=== PATIENT | female | born 1985 | race Hispanic/Latino ===

== ENCOUNTER → 2024-10-30 10:19 | Outpatient (REF) | payer OTHER, SELFPAY ==
[2024-10-30 11:59] LABS: Hematocrit 42.3 % (37.0-47.0); Hemoglobin 14.9 g/dL (12.0-16.0); Mean Corp Hgb Conc. 35.2 g/dL (33.0-37.0); Mean Corpuscular Hgb 30.2 pg (27.0-31.0); Mean Corpuscular Volume 85.8 fL (81.0-99.0); Mean Platelet Volume 11.7 fL (7.4-10.4); Platelet Count 210 10^3/uL (130-400); Red Blood Cell Count 4.93 10^6/uL (4.20-5.40); Red Cell Dist. Width 12.6 % (11.5-14.5); White Blood Cell Count 6.7 10^3/uL (4.8-10.8)
[2024-10-30 12:33] LABS: ALT (SGPT) 19 U/L (0-35); AST (SGOT) 20 U/L (14-36); Albumin 3.9 g/dl (3.5-5.0); Alkaline Phosphatase 65 U/L (38-126); Blood Urea Nitrogen 13 mg/dl (7-17); Calcium 8.9 mg/dl (8.4-10.2); Carbon Dioxide 27 mmol/L (22-30); Chloride 107 mmol/L (98-107); Glucose 82 mg/dl (70-99); HDL Cholesterol 46 mg/dl; LDL Cholesterol, Calculated 119 mg/dl; Sodium 140 mmol/L (135-145); Total Bilirubin 0.9 mg/dl (0.2-1.3); Total Cholesterol 184 mg/dl (50-199); Total Protein 6.7 g/dl (6.3-8.2); Triglyceride 95 mg/dl (10-149); Very Low Density Lipoprotein 19 mg/dl (0-30); eGFR > 60.00
[2024-10-30 13:06] LABS: TSH Reflex To Free T4 4.72 uIU/ml (0.47-4.68)
[2024-10-30 13:26] LABS: Glycohemoglobin (HgbA1c) 4.8 % (4.0-5.6)
[2024-10-30 13:34] LABS: Free T4 0.89 ng/dl (0.78-2.19)
== END ==
LOC: CLINIC 10:19
PROVIDERS: ATTENDING PHYSICIAN Nurse Practitioner Adult Health
DX: R73.9 Hyperglycemia, unspecified (principal); Z00.00 Encounter for general adult medical examination without abnormal findings
CPT/HCPCS: 36415; 80053; 80061; 83036; 84439; 84443; 85027

== ENCOUNTER → 2025-02-26 16:21 | Outpatient (REF) | payer OTHER, SELFPAY ==
[2025-02-26 17:32] LABS: TSH 2.18 uIU/ml (0.47-4.68)
== END ==
LOC: CLINIC 16:21
PROVIDERS: ATTENDING PHYSICIAN Nurse Practitioner Adult Health
DX: E03.8 Other specified hypothyroidism (principal)
CPT/HCPCS: 36415; 84439; 84443; 86376